=== PATIENT | male | born 1955 | race Caucasian/White ===

== ENCOUNTER 2019-03-24 10:43 | Day surgery (SDC) | payer MEDICARE, OTHER ==
[~2019-03-24] VITALS: Ht 175.3 cm; Wt 92.4 kg
[2019-03-24 11:18] VITALS: BP 143/98
== END 2019-03-24 14:00 | disposition home or self-care (01) ==
LOC: OUT 10:43
PROVIDERS: ATTEND Internal Medicine
DX: R13.10 Dysphagia, unspecified (principal); K31.7 Polyp of stomach and duodenum; K21.9 Gastro-esophageal reflux disease without esophagitis; I10 Essential (primary) hypertension; Z88.0 Allergy status to penicillin; Z91.048 Other nonmedicinal substance allergy status
CPT/HCPCS: 36415; 43248; 43259; 80053; 93005; J2704; J7120